=== PATIENT | female | born 1995 | race American Indian/Alaskan Native ===

== ENCOUNTER 2017-09-25 18:58 | Emergency (ER) | payer SELFPAY ==
[2017-09-25 22:29] LABS: HCG Qualitative,Urine Positive (Negative)
[2017-09-25 22:43] LABS: Bacteria,Urine 3+ /HPF (Negative); Bilirubin,Urine NEG (Negative); Blood,Urine NEG (Negative); Mucus,Urine FEW /HPF; Protein,Urine <15 mg/dL mg/dL (Negative)
[2017-09-25 22:44] LABS: Color,Urine Straw (Yellow)
--- NOTE | 2017-09-25 23:13 | Emergency Department Report ---
ED Abdominal Pain HPI - General Chief Complaint: Abdominal Pain Stated Complaint: FEVER Time Seen by Provider: 09/25/17 23:02 Source: patient Mode of arrival: Ambulatory Limitations: No Limitations - History of Present Illness Initial Comments: Patient here complaining of fever, abdominal and pelvic pain. Denies any urinary burning frequency or urgency. Denies any diarrhea, nausea or vomiting. Pain is 9 out of 10 and cramping. She said this started 2 days ago. Her last menstrual period was 08/03/2017. Patient states that she does not know she is . Denies any vaginal bleeding or discharge. Denies any concern for STDs. Denies any back pain. Denies any shortness of breath or chest pain. She says she took some cupf-urm-zyrvivt cough Tylenol yesterday morning. Pain comes and goes, crampy. Nothing makes it better and nothing makes it worse. Denies blood in her stool or urine. MD Complaint: abdominal pain Onset/Timin -: days(s) Location: suprapubic Radiation: none Migration to: no migration Severity: severe Severity scale (0 -10): 9 Quality: cramping Consistency: intermittent Improves With: nothing Worsens With: nothing Context: other (unknown) Associated Symptoms: fever. denies: nausea, vomiting, diarrhea, chills, constipation, dysuria, hematemesis, hematochezia, melena, hematuria, anorexia, syncope Treatments Prior to Arrival: other (Tylenol) - Related Data LMP Date: 08/03/17 Previous Rx's Medication Instructions Recorded Last Taken Type Nitrofurantoin Monohyd/M-Cryst 100 mg PO Q12H 7 Days #14 capsule 09/26/17 Unknown Rx [Macrobid 100 mg Capsule] Vit No.130/Iron/Folic 1 each PO QAM 30 Days #30 tablet 09/26/17 Unknown Rx [ Tablet] Allergies Allergy/AdvReac Type Severity Reaction Status Date / Time No Known Allergies Allergy Unverified 09/25/17 20:19 ED Review of Systems ROS: Stated complaint: FEVER Other details as noted in HPI Comment: All other systems reviewed and negative Constitutional: fever Eyes: denies: eye discharge ENT: denies: ear pain, throat pain, congestion Respiratory: no symptoms reported Cardiovascular: denies: chest pain, palpitations, dyspnea on exertion, edema, syncope, paroxysmal nocturnal dyspnea Gastrointestinal: abdominal pain. denies: nausea, vomiting, diarrhea, constipation, hematemesis, melena, hematochezia Skin: denies: rash Neurological: denies: headache, weakness, numbness, paresthesias, confusion, abnormal gait, vertigo ED Past Medical Hx - Past Medical History Previous Medical History?: No - Surgical History Past Surgical History?: No - Family History Family history: no significant - Social History Smoking Status: Never Smoker Substance Use Type: None - Medications Home Medications: Home Medications Medication Instructions Recorded Confirmed Last Taken Type Nitrofurantoin Monohyd/M-Cryst 100 mg PO Q12H 7 Days #14 capsule 09/26/17 Unknown Rx [Macrobid 100 mg Capsule] Vit No.130/Iron/Folic 1 each PO QAM 30 Days #30 tablet 09/26/17 Unknown Rx [ Tablet] ED Physical Exam - General Limitations: No Limitations General appearance: alert, in no apparent distress - Head Head exam: Present: atraumatic, normocephalic, normal inspection - Eye Eye exam: Present: normal appearance, PERRL, EOMI Pupils: Present: normal accommodation - ENT ENT exam: Present: normal exam, normal orophraynx, mucous membranes moist, TM's normal bilaterally, normal external ear exam - Neck Neck exam: Present: normal inspection, full ROM, other (no C-spine tenderness). Absent: tenderness, meningismus, lymphadenopathy, thyromegaly - Respiratory Respiratory exam: Present: normal lung sounds bilaterally. Absent: respiratory distress, chest wall tenderness - Cardiovascular Cardiovascular Exam: Present: regular rate, normal rhythm, normal heart sounds. Absent: systolic murmur, diastolic murmur - GI/Abdominal GI/Abdominal exam: Present: soft, normal bowel sounds. Absent: distended, tenderness, guarding, rebound, rigid, organomegaly, mass, bruit, pulsatile mass , hernia - Extremities Exam Extremities exam: Present: normal inspection, full ROM, normal capillary refill , other (no clubbing, cyanosis or edema. Positive pulses all extremities and no neurovascular compromise). Absent: tenderness, pedal edema, joint swelling, calf tenderness - Back Exam Back exam: Present: normal inspection, full ROM, other (patient ambulates without any difficulties). Absent: tenderness, CVA tenderness (R), CVA tenderness (L), muscle spasm, paraspinal tenderness, vertebral tenderness, rash noted - Neurological Exam Neurological exam: Present: alert, oriented X3, normal gait, reflexes normal - Psychiatric Psychiatric exam: Present: normal affect, normal mood - Skin Skin exam: Present: warm, dry, intact, normal color. Absent: rash ED Course Vital Signs 09/25/17 20:19 Temperature 98.7 F Pulse Rate 81 Respiratory 18 Rate Blood Pressure 118/50 O2 Sat by Pulse 100 Oximetry - Reevaluation(s) Reevaluation #1: 09/26/17 01:07 Patient remained stable throughout ED course. Rocephin 1 g IM given for urinary tract infection. ED Medical Decision Making - Lab Data Result diagrams: 09/25/17 23:27 09/25/17 23:27 Lab Results 09/25/17 09/25/17 09/25/17 Range/Units 22:06 23:27 23:27 WBC 7.1 (4.5-11.0) K/mm3 RBC 3.89 (3.65-5.03) M/mm3 Hgb 11.7 (10.1-14.3) gm/dl Hct 35.0 (30.3-42.9) % MCV 90 (79-97) fl MCH 30 (28-32) pg MCHC 33 (30-34) % RDW 12.7 L (13.2-15.2) % Plt Count 308 (140-440) K/mm3 Lymph % (Auto) 22.0 (13.4-35.0) % [place] % (Auto) 7.1 (0.0-7.3) % Eos % (Auto) 9.8 H (0.0-4.3) % Baso % (Auto) 0.5 (0.0-1.8) % Lymph # 1.6 (1.2-5.4) K/mm3 [place] # 0.5 (0.0-0.8) K/mm3 Eos # 0.7 H (0.0-0.4) K/mm3 Baso # 0.0 (0.0-0.1) K/mm3 Seg Neutrophils % 60.6 (40.0-70.0) % Seg Neutrophils # 4.3 (1.8-7.7) K/mm3 Sodium 137 (137-145) mmol/L Potassium 3.5 L (3.6-5.0) mmol/L Chloride 99.0 (98-107) mmol/L Carbon Dioxide 24 (22-30) mmol/L Anion Gap 18 mmol/L BUN 4 L (7-17) mg/dL Creatinine 0.4 L (0.7-1.2) mg/dL Estimated GFR > 60 ml/min BUN/Creatinine Ratio 10 % Glucose 80 (65-100) mg/dL Calcium 8.8 (8.4-10.2) mg/dL HCG, Quant (0-4) mIU/mL Urine Color Straw (Yellow) Urine Turbidity Slightly-cloudy (Clear) Urine pH 7.0 (5.0-7.0) Ur Specific [place] 1.012 (1.003-1.030) Urine Protein <15 mg/dl (Negative) mg/dL Urine Glucose (UA) Neg (Negative) mg/dL Urine Ketones Neg (Negative) mg/dL Urine Blood Neg (Negative) Urine Nitrite Neg (Negative) Ur Reducing Substances Not Reportable Urine Bilirubin Neg (Negative) Urine Ictotest Not Reportable Urine Urobilinogen 4.0 (<2.0) mg/dL Ur Leukocyte Esterase Tr (Negative) Urine WBC (Auto) 18.0 H (0.0-6.0) /HPF Urine RBC (Auto) 4.0 (0.0-6.0) /HPF U Epithel Cells (Auto) 18.0 H (0-13.0) /HPF Urine Bacteria (Auto) 3+ (Negative) /HPF Urine Mucus Few /HPF Urine HCG, Qual Positive A (Negative) 09/25/17 Range/Units 23:27 WBC (4.5-11.0) K/mm3 RBC (3.65-5.03) M/mm3 Hgb (10.1-14.3) gm/dl Hct (30.3-42.9) % MCV (79-97) fl MCH (28-32) pg MCHC (30-34) % RDW (13.2-15.2) % Plt Count (140-440) K/mm3 Lymph % (Auto) (13.4-35.0) % [place] % (Auto) (0.0-7.3) % Eos % (Auto) (0.0-4.3) % Baso % (Auto) (0.0-1.8) % Lymph # (1.2-5.4) K/mm3 [place] # (0.0-0.8) K/mm3 Eos # (0.0-0.4) K/mm3 Baso # (0.0-0.1) K/mm3 Seg Neutrophils % (40.0-70.0) % Seg Neutrophils # (1.8-7.7) K/mm3 Sodium (137-145) mmol/L Potassium (3.6-5.0) mmol/L Chloride (98-107) mmol/L Carbon Dioxide (22-30) mmol/L Anion Gap mmol/L BUN (7-17) mg/dL Creatinine (0.7-1.2) mg/dL Estimated GFR ml/min BUN/Creatinine Ratio % Glucose (65-100) mg/dL Calcium (8.4-10.2) mg/dL HCG, Quant 43178 H (0-4) mIU/mL Urine Color (Yellow) Urine Turbidity (Clear) Urine pH (5.0-7.0) Ur Specific [place] (1.003-1.030) Urine Protein (Negative) mg/dL Urine Glucose (UA) (Negative) mg/dL Urine Ketones (Negative) mg/dL Urine Blood (Negative) Urine Nitrite (Negative) Ur Reducing Substances Urine Bilirubin (Negative) Urine Ictotest Urine Urobilinogen (<2.0) mg/dL Ur Leukocyte Esterase (Negative) Urine WBC (Auto) (0.0-6.0) /HPF Urine RBC (Auto) (0.0-6.0) /HPF U Epithel Cells (Auto) (0-13.0) /HPF Urine Bacteria (Auto) (Negative) /HPF Urine Mucus /HPF Urine HCG, Qual (Negative) Urine culture pending - Radiology Data Radiology results: report reviewed Ultrasound pelvis with transvaginal OB revealed patient is single viable IUP, 12 weeks 4 days. heart rate is at 145 bpm. Both maternal ovaries are appropriate size, contour, blood flow and echotexture. Gestational sac containing a pole noted. No free fluid seen. - Medical Decision Making ED course: She reports abdominal and pelvic pain without any nausea vomiting. Reported that she had fever. Denies any urinary symptoms. Denies any vaginal bleeding or discharge. Denies any concern for STDs. Patient initially denies but after I told her that she was she reports that she suspected it and wanted to be checked to see if she is . Urinalysis revealed patient with urinary tract infection and positive test. Urine culture sent and pending. Quantitative hCG positive for ultrasound OB reveals a single viable IUP at 12 weeks and 4 days. heart rate is 145 bpm. Both ovaries are normal. Patient's CBC and chemistry was normal with no elevation in white blood cell. Please refer to radiology and lab section for details. I discussed patient that her test is positive and she is at 12 weeks and 4 days . She did not seem to be surprised. I also discussed with her that her urinalysis is positive for urinary tract infection and will be treated with Macrobid antibiotic. I discussed with her that is very important that she takes antibiotic as infection and can affect the baby. Patient able to tolerate oral liquids in emergency room without any difficulties. She did not require any pain medication. Patient does not have access to primary care so I discussed with her she can follow-up at [facility] where they have [facility] she can call in the morning to schedule an appointment. I also discussed with her that she can also follow-up with [facility] doctor Kinza Lewis who is on-call. I discussed with her to call tomorrow to schedule an appointment. Patient voiced understanding of discharge instruction and treatment plan. Patient discharged home in stable condition with prescription for Macrobid and vitamin. Critical care attestation.: If time is entered above; I have spent that time in minutes in the direct care of this critically ill patient, excluding procedure time. ED Disposition Clinical Impression: UTI (urinary tract infection) in in first trimester Abdominal pain in Qualifiers: Trimester: first trimester Qualified Code(s): O26.891 - Other specified related conditions, first trimester; R10.9 - Unspecified abdominal pain Disposition: DC-01 TO HOME OR SELFCARE Is pt being admited?: No Does the pt Need Aspirin: No Condition: Stable Instructions: Abdominal Pain (ED), (ED), Morning Sickness (ED), Urinary Tract Infection in Women (ED) Additional Instructions: Please take antibiotic as prescribed. Increase your fluid intake to at least 2-3 L of water per day Please follow up with [facility] as instructed. Take vitamin. If you develop vaginal bleeding, discharge or increase in abdominal pain please return to the emergency room otherwise follow-up with [facility] for care Prescriptions: Nitrofurantoin Monohyd/M-Cryst [Macrobid 100 mg Capsule] 100 mg PO Q12H 7 Days # 14 capsule Vit No.130/Iron/Folic [ Tablet] 1 each PO QAM 30 Days #30 tablet Referrals: [facility] [Outside] - 09/27/17 AZUCENA LEWIS MD [Staff Physician] - 09/27/17
[2017-09-25 23:44] LABS: Basophils % (Auto) 0.5 % (0.0-1.8); Eosinophils # (Auto) 0.7 K/mm3 (0.0-0.4); Eosinophils % (Auto) 9.8 % (0.0-4.3); Hemoglobin 11.7 gm/dl (10.1-14.3); Lymphocytes # (Auto) 1.6 K/mm3 (1.2-5.4); Mean Corpuscular HGB Conc 33 % (30-34); Mean Corpuscular Hemoglobin 30 pg (28-32); Mean Corpuscular Volume 90 fl (79-97); Monocytes # (Auto) 0.5 K/mm3 (0.0-0.8); Monocytes % (Auto) 7.1 % (0.0-7.3); Platelet Count 308 K/mm3 (140-440); Red Blood Count 3.89 M/mm3 (3.65-5.03); Red Cell Distribution Width 12.7 % (13.2-15.2)
[2017-09-25 23:51] LABS: BUN/Creatinine Ratio 10; Blood Urea Nitrogen 4 mg/dL (7-17); Calcium 8.8 mg/dL (8.4-10.2); Hemolysis Index 3
--- NOTE | 2017-09-26 00:22 | Ultrasound Report ---
FINAL REPORT EXAM: US OB < = 14 WEEKS FETUS HISTORY: abdominal pain with positive TECHNIQUE: Transabdominal imaging was obtained of the pelvis along with Doppler interrogation of the adnexa. FINDINGS: The uterus is anteverted measuring 10.8 cm x 8 cm x 9.5 cm. Within the uterus is a gestational sac containing a pole. The estimated gestational age based on crown-rump length is 12 weeks 4 days. The heart is 145 BPM. Free fluid is not seen. Both maternal ovaries are appropriate size, contour, blood flow, and echotexture. The right ovary measures 3 cm x 1.9 cm x 2.2 cm. The left ovary measures 2.5 cm x 1.2 cm x 1.9 cm IMPRESSION: Single viable IUP, 12 weeks 4 days. heart rate is 145 BPM.
[2017-09-26] MEDS ORDERED: ROCEPHIN IM STA (01:07)
[2017-09-26 02:40] VITALS: BP 114/51
== END 2017-09-26 01:45 | disposition home or self-care (01) ==
LOC: ED 18:58
DX: O23.41 Unspecified infection of urinary tract in pregnancy, first trimester (principal); Z3A.12 12 weeks gestation of pregnancy
CPT/HCPCS: 36415; 76801; 80048; 81001; 81025; 84702; 85025; 87086; 96372; 99284; J0696

== ENCOUNTER 2017-10-22 10:07 | Emergency (ER) | payer MEDICAID ==
[2017-10-22 10:41] VITALS: BP 111/67
[2017-10-22 11:43] LABS: Basophils % (Auto) 0.4 % (0.0-1.8); Eosinophils # (Auto) 0.2 K/mm3 (0.0-0.4); Eosinophils % (Auto) 3.1 % (0.0-4.3); Hemoglobin 11.9 gm/dl (10.1-14.3); Lymphocytes # (Auto) 1.3 K/mm3 (1.2-5.4); Lymphocytes % (Auto) 21.5 % (13.4-35.0); Mean Corpuscular HGB Conc 34 % (30-34); Mean Corpuscular Hemoglobin 30 pg (28-32); Mean Corpuscular Volume 89 fl (79-97); Monocytes # (Auto) 0.4 K/mm3 (0.0-0.8); Platelet Count 293 K/mm3 (140-440); Red Blood Count 3.93 M/mm3 (3.65-5.03); Red Cell Distribution Width 12.3 % (13.2-15.2)
[2017-10-22 11:56] LABS: Bacteria,Urine 1+ /HPF (Negative); Bilirubin,Urine NEG (Negative); Blood,Urine NEG (Negative); Color,Urine Yellow (Yellow); Protein,Urine <15 mg/dL mg/dL (Negative)
[2017-10-22 12:04] LABS: Alanine Aminotransferase 9 units/L (7-56); BUN/Creatinine Ratio 10; Blood Urea Nitrogen 4 mg/dL (7-17); Calcium 8.8 mg/dL (8.4-10.2); Hemolysis Index 18; Lipase 16 units/L (13-60)
--- NOTE | 2017-10-22 16:42 | Emergency Department Report ---
Chief Complaint: Abdominal Pain Stated Complaint: ABD PAIN Time Seen by Provider: 10/22/17 16:36 - HPI History of Present Illness: 22-year-old -[place] female comes to the emergency room reporting that she wants an ultrasound of her baby to check on the baby. Patient denies any vaginal discharge denies any pelvic pain denies any abdominal pain denies any vaginal bleeding, denies any chest pain no vaginal discharge. Patient denies any recent trauma. - ROS Review of Systems: Review of systems negative - Exam Vital Signs: Vital Signs 10/22/17 10:37 Temperature 98.6 F Pulse Rate 78 Respiratory 16 Rate Blood Pressure 111/67 O2 Sat by Pulse 100 Oximetry Physical Exam: Patient alert and oriented 3. She is in no acute distress, nontoxic, able to speak complete sentences. Normal gait. Vital signs are stable. MSE screening note: Focused history and physical exam performed. Due to findings the following was ordered: Discussed with patient she should follow up with her primary [facility] provider. ED Medical Decision Making - Lab Data Result diagrams: 10/22/17 11:19 10/22/17 11:19 ED Disposition for MSE Clinical Impression: Worried well Disposition: DC-01 TO HOME OR SELFCARE Is pt being admited?: No Does the pt Need Aspirin: No Condition: Stable Instructions: Abdominal Pain (ED) Referrals: your,provider [Other] - 3-5 Days
== END 2017-10-22 16:40 | disposition home or self-care (01) ==
LOC: ED 10:07
DX: Z71.1 Person with feared health complaint in whom no diagnosis is made (principal); R10.9 Unspecified abdominal pain
CPT/HCPCS: 36415; 80053; 81001; 83690; 85025; 99283

== ENCOUNTER 2018-03-04 15:48 | Outpatient (CLI) | payer MEDICAID ==
[2018-03-04] MEDS ORDERED: LACTATED RINGERS 500 ML IV ONE (15:57)
[2018-03-04 16:09] VITALS: BP 110/61
[2018-03-04 16:43] LABS: Amorphous Crystals,Urine 1+; Bilirubin,Urine NEG (Negative); Blood,Urine NEG (Negative); Color,Urine Yellow (Yellow)
== END 2018-03-04 18:12 | disposition home or self-care (01) ==
LOC: TRG 15:48
PROVIDERS: ATTEND Obstetrics & Gynecology
DX: O47.03 False labor before 37 completed weeks of gestation, third trimester (principal); Z3A.35 35 weeks gestation of pregnancy
CPT/HCPCS: 59025; 81001

== ENCOUNTER 2018-04-03 17:20 | Outpatient (CLI) | payer MEDICAID ==
[2018-04-03 17:53] VITALS: BP 124/80
== END 2018-04-03 19:22 | disposition home or self-care (01) ==
LOC: TRG 17:20
PROVIDERS: ATTEND Obstetrics & Gynecology
DX: O47.1 False labor at or after 37 completed weeks of gestation (principal); Z3A.39 39 weeks gestation of pregnancy
CPT/HCPCS: 59025

== ENCOUNTER 2019-06-04 12:06 | Outpatient (CLI) | payer MEDICAID ==
[2019-06-04 13:22] VITALS: BP 120/66
--- NOTE | 2019-06-04 14:47 | Ultrasound Report ---
ULTRASOUND BIOPHYSICAL PROFILE INDICATION: Intrauterine growth restriction. COMPARISON: None available. FINDINGS: heart rate is 126 beats per minute. breathing movement = 2 Gross body movement = 2 tone = 2 Qualitative amniotic fluid volume = 2 IMPRESSION: biophysical profile = 03/01 Signer Name: Robbie García Jr, MD Signed: 06/04/2019 2:43 PM Workstation Name: [id number]
== END 2019-06-04 14:00 | disposition home or self-care (01) ==
LOC: TRG 12:06
PROVIDERS: ATTEND Obstetrics & Gynecology
DX: O47.1 False labor at or after 37 completed weeks of gestation (principal); Z3A.38 38 weeks gestation of pregnancy
CPT/HCPCS: 59025; 76819

== ENCOUNTER 2019-06-05 08:50 | Inpatient (IN) | payer MEDICAID ==
--- NOTE | 2019-06-05 09:23 | History and Physical Report ---
History of Present Illness Date of examination: 06/05/19 Date of admission: 06/05/19 08:50 Chief complaint: IOL for IUGR History of present illness: EDC Confirmation: 06/18/2019 Past History : 2 Term Births: 1 Premature Births: 0 Living Children: 1 Para: 1 Prev : 0 Prev. attempt? 0 Aborta: 0 Elect. Ab: 0 Spont. Ab: 0 Ectopics: 0 # 1 Delivery date: 04/04/2018 Weeks Gestation: 39.5 Delivery type: Vaginal Anesthesia type: none Delivery location: [facility] Infant Sex: female weight: 5.50 Comments: precipitous delivery 1cm to delivery in 8 hours Past Medical History: Reviewed history from 10/25/2017 and no changes required: Negative Past Medical History Past Surgical History: Reviewed history from 10/25/2017 and no changes required: negative Past Medical History Anesthesia Complications: negative Anemia: negative Autoimmune Disorder: negative Bleeding Disorder: negative Blood Transfusions: negative Breast Disease: negative Diabetes: negative Heart Disease: negative Hypertension: negative Hepatitis/Liver Disease: negative Kidney Disease/UTI: negative Neurologic/Epilepsy/Migraines: negative Phlebitis/Varicosities: negative Psychiatric: negative Pulmonary Disease/Asthma: negative Thyroid Disease: negative Hospitalizations: negative 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 of genital herpes: no Partner hx. of genital herpes: no Rash, Viral, or Febrile illness since last LMP? no Varicella/Chicken Pox Status: Immunized TB Risk: no Genetic History Congenital Heart Defect: Mom: no Dad: no [place] Disease: Mom: no Dad: no Thalassemia Mom: no Dad: no Neural Tube Defect Mom: no Dad: no Down's Syndrome Mom: no Dad: no Orion-Sachs Mom: no Dad: no Sickle Cell Disease/Trait Mom: yes Dad: no Hemophilia Mom: no Dad: no Muscular Dystrophy Mom: no Dad: no Cystic Fibrosis Mom: no Dad: no Asher Chorea Mom: no Dad: no Mental Retardation Mom: no Dad: no Fragile X Mom: no Dad: no Other Genetic/Chromosomal Disorder Mom: no Dad: no Child w/other defect Mom: no Dad: no Enviromental Exposures Xray Exposure: no Medication, drug, or alcohol use since LMP: no Chemical/Other Exposure: no Exposure to Cat Liter: no Hx of Parvovirus (Fifth Disease): no Occupational Exposure to Children: none Active Medications (reviewed today): SPRINTEC 28 0.25-35 MG-MCG ORAL TABLET (NORGESTIMATE-ETH ESTRADIOL) 1 po qd Current Allergies (reviewed today): No known allergies Past History Past Medical History: other (see HPI) Past Surgical History: other (see HPI) 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) Family/Genetic History: other (see HPI) - Obstetrical History Expected Date of Delivery: 06/18/19 Actual Gestation: 38 Week(s) 1 Day(s) : 2 Para: 1 Hx # Term Pregnancies: 1 Number of Pregnancies: 0 Spontaneous Abortions: 0 Induced : 0 Number of Living Children: 1 Medications and Allergies Allergies Allergy/AdvReac Type Severity Reaction Status Date / Time No Known Allergies Allergy Verified 03/04/18 15:56 Home Medications Medication Instructions Recorded Confirmed Last Taken Type Vit No.130/Iron/Folic 1 each PO QAM 30 Days #30 tablet 09/26/17 04/04/18 03/03/18 09:00 Rx [ Tablet] Ibuprofen [Motrin 800 MG tab] 800 mg PO Q8HR PRN #30 tablet 04/05/18 Unknown Rx Active Meds: Active Medications Ephedrine Sulfate (Ephedrine Sulfate) 10 mg IV Q2M PRN PRN Reason: Hypotension Oxytocin/Sodium Chloride (Pitocin/Ns 20 Unit/1000ml Drip) 20 units in 1,000 mls @ 125 mls/hr IV DIRECT SIVAN Oxytocin/Sodium Chloride (Pitocin/Ns 30 Unit/500ml) 30 units in 500 mls @ 4 mls/hr IV TITR SIVAN; Protocol Lactated Ringer's (Lactated Ringers) 1,000 mls @ 125 mls/hr IV DIRECT SIVAN Ampicillin Sodium (Ampicillin/Ns 2 Gm/100 Ml) 2 gm in 100 mls @ 100 mls/hr IV ONCE ONE; Protocol Stop: 06/05/19 10:11 Ampicillin Sodium (Ampicillin/Ns 1 Gm/50 Ml) 1 gm in 50 mls @ 100 mls/hr IV Q4HR SIVAN; Protocol Lidocaine (Xylocaine 2%) 20 ml INFILTRATI ONCE ONE Stop: 06/05/19 09:13 Mineral Oil (Mineral Oil) 30 ml PO QHS PRN PRN Reason: Constipation Ondansetron HCl (Zofran) 4 mg IV Q8H PRN PRN Reason: Nausea And Vomiting Terbutaline Sulfate (Brethine) 0.25 mg SUB-Q ONCE PRN PRN Reason: Hyperstimulation/Hypertonicity Review of Systems All systems: negative - Physical Exam Breasts: Positive: normal Cardiovascular: Regular rate Lungs: Positive: Clear to auscultation, Normal air movement Abdomen: Positive: normal appearance, soft Genitourinary (Female): Positive: normal external genitalia, normal perenium Vulva: both: normal Vagina: Positive: normal moisture Uterus: Positive: normal size Anus/Rectum: Positive: normal perianal skin Extremities: Positive: normal Deep Tendon Reflex Grade: Normal +2 - Obstetrical FHR: category 1 Uterine Contraction Monitor Mode: External Cervical Dilatation: 0.5 Uterine Contraction Pattern: Regular Uterine Tone Measurement Phase: Contraction Uterine Contraction Intensity: Mild Results Result Diagrams: 06/05/19 09:30 All other labs normal. Assessment and Plan 23 y/o @ 38+1 weeks (EDC set by 16wk u/s, unknown LMP) recently dx with IUGR. pt noncompliant with going to [facility]. EFW in office overall 5th% 05/22/19 (4#11oz). GBS +. Plan for IOL with pitocin. Anticipate . - Patient Problems (1) GBS (group B Streptococcus carrier), +RV culture, currently Current Visit: Yes Status: Acute Plan to address problem: amp q4hr until delivery (2) IUGR (intrauterine growth restriction) Current Visit: Yes Status: Acute Plan to address problem: IOL for IUGR - pitocin continuos EFM/toco (3) 38 weeks gestation of Current Visit: Yes Status: Acute
[2019-06-05] MEDS ORDERED: ePHEDrine SULFATE 50 MG/1 ML INJ IV PRN ×2 (09:30→14:00)
[2019-06-05] MEDS ORDERED: AMPICILLIN/NS 2 GM/100 ML 2 GM/100 ML BAG IV NR (09:30)
[2019-06-05] MEDS ORDERED: ONDANSETRON 4 MG/2 ML INJ IV PRN (10:00)
[2019-06-05] MEDS ORDERED: LACTATED RINGERS 1,000 ML IV SCH (10:00)
[2019-06-05] MEDS ORDERED: OXYTOCIN 20 UNIT/1000ML DRIP 20 UNITS/1,000 ML BAG IV SCH ×2 (10:00→21:05)
[2019-06-05] MEDS ORDERED: MINERAL OIL 30 ML ORAL LIQD PO PRN (10:00)
[2019-06-05] MEDS ORDERED: LIDOCAINE (2%) 20 MG/1 ML VIAL 20 ML MDV INFILTRATI NR (10:00)
[2019-06-05] MEDS ORDERED: TERBUTALINE 1 MG/1 ML INJ SUB-Q PRN (10:00)
[2019-06-05] MEDS ORDERED: OXYTOCIN DRIP 30 UNITS/500 ML BAG IV SCH (10:00)
[2019-06-05 10:08] LABS: Hematocrit 29.4 % (30.3-42.9); Hemoglobin 9.2 gm/dl (10.1-14.3); Mean Corpuscular HGB Conc 31 % (30-34); Mean Corpuscular Volume 72 fl (79-97); Platelet Count 341 K/mm3 (140-440)
--- NOTE | 2019-06-05 13:40 | Progress Note ---
Assessment and Plan Pitocin @ 20mU, AROM clear fluid. IUPC placed without difficulty. Patient desires epidural. IVF bolus started. - Patient Problems (1) GBS (group B Streptococcus carrier), +RV culture, currently Current Visit: Yes Status: Acute Plan to address problem: amp q4hr until delivery (2) IUGR (intrauterine growth restriction) Current Visit: Yes Status: Acute Plan to address problem: IOL for IUGR - pitocin continuos EFM/toco (3) 38 weeks gestation of Current Visit: Yes Status: Acute Subjective - Subjective Date of service: 06/05/19 Principal diagnosis: IUP @ 38+1; IOL IUGR Interval history: EDC Confirmation: 06/18/2019 Past History : 2 Term Births: 1 Premature Births: 0 Living Children: 1 Para: 1 Prev : 0 Prev. attempt? 0 Aborta: 0 Elect. Ab: 0 Spont. Ab: 0 Ectopics: 0 # 1 Delivery date: 04/04/2018 Weeks Gestation: 39.5 Delivery type: Vaginal Anesthesia type: none Delivery location: [facility] Infant Sex: female weight: 5.50 Comments: precipitous delivery 1cm to delivery in 8 hours Past Medical History: Reviewed history from 10/25/2017 and no changes required: Negative Past Medical History Past Surgical History: Reviewed history from 10/25/2017 and no changes required: negative Past Medical History Anesthesia Complications: negative Anemia: negative Autoimmune Disorder: negative Bleeding Disorder: negative Blood Transfusions: negative Breast Disease: negative Diabetes: negative Heart Disease: negative Hypertension: negative Hepatitis/Liver Disease: negative Kidney Disease/UTI: negative Neurologic/Epilepsy/Migraines: negative Phlebitis/Varicosities: negative Psychiatric: negative Pulmonary Disease/Asthma: negative Thyroid Disease: negative Hospitalizations: negative Surgery (Non-oral surgeon): negative Abnormal PAP: first pap 01/02/19 Social Hx: single [place] No etoh/drugs/smoking Infection History Hx of STD: CT HIV Risk Eval: low risk Hepatitis B Risk Eval: low risk Personal hx. of genital herpes: no Partner hx. of genital herpes: no Rash, Viral, or Febrile illness since last LMP? no Varicella/Chicken Pox Status: Immunized TB Risk: no Genetic History Congenital Heart Defect: Mom: no Dad: no [place] Disease: Mom: no Dad: no Thalassemia Mom: no Dad: no Neural Tube Defect Mom: no Dad: no Down's Syndrome Mom: no Dad: no Orion-Sachs Mom: no Dad: no Sickle Cell Disease/Trait Mom: yes Dad: no Hemophilia Mom: no Dad: no Muscular Dystrophy Mom: no Dad: no Cystic Fibrosis Mom: no Dad: no Mason Chorea Mom: no Dad: no Mental Retardation Mom: no Dad: no Fragile X Mom: no Dad: no Other Genetic/Chromosomal Disorder Mom: no Dad: no Child w/other defect Mom: no Dad: no Enviromental Exposures Xray Exposure: no Medication, drug, or alcohol use since LMP: no Chemical/Other Exposure: no Exposure to Cat Liter: no Hx of Parvovirus (Fifth Disease): no Occupational Exposure to Children: none Active Medications (reviewed today): SPRINTEC 28 0.25-35 MG-MCG ORAL TABLET (NORGESTIMATE-ETH ESTRADIOL) 1 po qd Current Allergies (reviewed today): No known allergies Patient reports: movement normal, contractions Objective - Vital Signs Vital Signs: Vital Signs - 12hr 06/05/19 06/05/19 06/05/19 09:24 09:25 09:30 Temperature Pulse Rate 70 75 113 H Blood Pressure 129/76 O2 Sat by Pulse 100 100 Oximetry 06/05/19 06/05/19 06/05/19 09:35 09:38 10:44 Temperature 98.4 F Pulse Rate 106 H 74 Blood Pressure 119/73 O2 Sat by Pulse 100 Oximetry 06/05/19 06/05/19 06/05/19 11:00 11:15 11:23 Temperature Pulse Rate 63 67 58 L Blood Pressure 118/74 122/70 O2 Sat by Pulse 81 L Oximetry 06/05/19 06/05/19 06/05/19 11:24 11:30 11:46 Temperature Pulse Rate 54 L 76 71 Blood Pressure 115/74 149/68 O2 Sat by Pulse 81 L Oximetry 06/05/19 06/05/19 06/05/19 11:49 11:55 12:00 Temperature Pulse Rate 63 76 72 Blood Pressure O2 Sat by Pulse 100 100 100 Oximetry 06/05/19 06/05/19 06/05/19 12:01 12:05 12:10 Temperature Pulse Rate 75 83 71 Blood Pressure 119/74 O2 Sat by Pulse 100 100 Oximetry 06/05/19 06/05/19 06/05/19 12:15 12:16 12:17 Temperature Pulse Rate 80 70 75 Blood Pressure 124/83 O2 Sat by Pulse 100 74 L Oximetry 06/05/19 06/05/19 06/05/19 12:20 12:25 12:30 Temperature Pulse Rate 71 76 81 Blood Pressure 118/77 O2 Sat by Pulse 99 100 100 Oximetry 06/05/19 06/05/19 06/05/19 12:35 12:40 12:45 Temperature Pulse Rate 82 81 75 Blood Pressure 125/79 O2 Sat by Pulse 100 98 88 Oximetry 06/05/19 06/05/19 06/05/19 12:50 12:55 13:00 Temperature Pulse Rate 93 H 83 81 Blood Pressure 120/74 O2 Sat by Pulse 100 100 99 Oximetry 06/05/19 06/05/19 06/05/19 13:05 13:10 13:22 Temperature Pulse Rate 72 88 77 Blood Pressure 123/65 O2 Sat by Pulse 99 100 94 Oximetry 06/05/19 06/05/19 06/05/19 13:23 13:28 13:31 Temperature Pulse Rate 77 79 71 Blood Pressure 145/67 O2 Sat by Pulse 99 100 Oximetry 06/05/19 13:33 Temperature Pulse Rate 69 Blood Pressure O2 Sat by Pulse 100 Oximetry - Exam Breasts: normal Cardiovascular: Regular rate Lungs: Clear to auscultation, Normal air movement Abdomen: Present: normal appearance, soft Vulva: both: normal Uterus: Present: normal, fundal height at umbilicus FHR: auscultation normal, category 1 Uterine Contraction Monitor Mode: Internal Cervical Dilatation: 3 (AROM - clear) Cervical Effacement Percentage: 80 station: 0 Uterine Contraction Frequency (min): 2-3 Uterine Contraction Duration: 60 Uterine Contraction Pattern: Regular Uterine Tone Measurement Phase: Contraction Uterine Contraction Intensity: Moderate Extremities: normal Deep Tendon Reflex Grade: Normal +2 - Labs Labs: Abnormal Labs 06/05/19 09:30 Hgb 9.2 L Hct 29.4 L MCV 72 L MCH 23 L RDW 16.0 H Laboratory Results - last 24 hr 06/05/19 06/05/19 06/05/19 09:30 09:30 09:30 WBC 6.3 RBC 4.10 Hgb 9.2 L Hct 29.4 L MCV 72 L MCH 23 L MCHC 31 RDW 16.0 H Plt Count 341 Syphilis IgG Antibody Non-reactive Blood Type O POSITIVE Antibody Screen Negative
[2019-06-05] MEDS ORDERED: NALOXONE 2 MG/2 ML INJ IV PRN (14:00)
[2019-06-05] MEDS ORDERED: AMPICILLIN/NS 1 GM/50 ML 1 GM/50 ML BAG IV SCH (14:00)
[2019-06-05] MEDS ORDERED: fentaNYL-BUPIV 2 MCG/ML-0.125% 200 MCG/100 ML BAG EPIDURAL SCH (14:00)
--- NOTE | 2019-06-05 14:00 | Anesthesia Consultation ---
Anesthesia Consult and Med Hx Date of service: 06/05/19 - Airway Anesthetic Teeth Evaluation: Good ROM Head & Neck: Adequate Mental/Hyoid Distance: Adequate Mallampati Class: Class II Intubation Access Assessment: Good - Cardiac Exam Cardiac Exam: RRR - Pre-Operative Health Status ASA Pre-Surgery Classification: ASA2, Emergency Proposed Anesthetic Plan: Epidural - Pulmonary Hx Asthma: No COPD: No Hx Pneumonia: No - Cardiovascular System Hx Hypertension: No - Central Nervous System Hx Seizures: No Hx Psychiatric Problems: No - Endocrine Hx Renal Disease: No Hx End Stage Renal Disease: No Hx Hypothyroidism: No Hx Hyperthyroidism: No - Hematic Hx Anemia: No Hx Sickle Cell Disease: No - Other Systems Hx Alcohol Use: No
[2019-06-05] MEDS ORDERED: fentaNYL 100 MCG/2 ML INJ ONE (14:08)
[2019-06-05] MEDS ORDERED: BUPIVACAINE/PF (0.25%) 2.5 MG/ML 10 ML VIAL INFILTRATI ONE (14:09)
--- NOTE | 2019-06-05 18:21 | Procedure Note ---
OB Delivery Note - Delivery Date of Delivery: 06/05/19 ( female) Conference Planning Manager: ARGELIA PONCE Estimated blood loss: other (400) - Vaginal Delivery presentation: vertex Delivery position: OA Intrapartum events: none Delivery induction: oxytocin Delivery augmentation: rupture of membranes Delivery monitor: external FHT, internal uterine Route of delivery: Delivery placenta: spontaneous (sent to pathology) Delivery cord: 3 umbilical vessels Episiotomy: none Delivery laceration: none Anesthesia: epidural Delivery comments: female infant del over intact perineum, placed skin to skin on mother's abdomen. 3 vessel cord clamped and cut after cessation of pulsation. Placenta del intact and complete - sent to pathology. no lacs to repair. EBL 300, apgars 8/9, wt 5#14oz. Mother and infant remain LDR stable. - Infant A at 1 minute: 8 at 5 minutes: 9 Gender: Female (5#14)
[2019-06-05] MEDS ORDERED: MAGNESIUM HYDROXIDE (MOM) ORAL LIQD UDC PO PRN (21:05)
[2019-06-05] MEDS ORDERED: WITCH HAZEL/ GLYCERIN PAD TP PRN (21:05)
[2019-06-05] MEDS ORDERED: diphenhydrAMINE 25 MG CAP PO PRN (21:05)
[2019-06-05] MEDS ORDERED: ACETAMINOPHEN 325 MG TAB PO PRN (21:05)
[2019-06-05] MEDS ORDERED: PROMETHAZINE 25 MG TAB PO PRN (21:05)
[2019-06-05] MEDS ORDERED: LANOLIN/ZINC/DIMETHICONE (LANSINOH) 7 GM TP PRN (21:05)
[2019-06-05] MEDS: IBUPROFEN 600 MG TAB PO SCH (21:21)
[2019-06-05] MEDS: FERROUS SULFATE 325 MG TAB PO SCH (21:22)
--- NOTE | 2019-06-06 05:04 | Post Anesthesia Evaluation ---
- Post Anesthesia Evaluation Patient Participated: Yes Airway Patent: Yes Stable Respiratory Function: Yes Nausea/Vomiting: No Temp > 96.8F: Yes Pain Manageable: Yes Adequeate Hydration: Yes Anesthesia Complications: No Block Receding Appropriately: Yes Patient on Ventilator: No
[2019-06-06] MEDS: IBUPROFEN 600 MG TAB PO SCH ×3 (05:16→21:25)
[2019-06-06 06:21] LABS: Hematocrit 25.6 % (30.3-42.9)
--- NOTE | 2019-06-06 06:26 | Discharge Summary ---
Providers - Providers Date of Admission: 06/05/19 08:50 Date of discharge: 06/06/19 (Wants to "maybe' go home today) Attending physician: JORGE A AGUSTIN Primary care physician: JORGE A AGUSTIN Hospitalization Reason for admission: induction of labor Delivery: Episiotomy: none Laceration: none Incision: normal Other procedures: none complications: none Discharge diagnosis: IUP at term delivered baby: female (IUGR) Hospital course: uncomplicated vaginal delivery Pt A&O caring for NB VSS FF below umb Lochia small Perineum intact H&H pending No s/sx of anemia Doing well s/p vag delivery. P: d/c today with instructions RTO 4 weeks PP care DEPO prior to d/c Condition at discharge: Good Disposition: DC-01 TO HOME OR SELFCARE - Discharge Diagnoses (1) Vaginal delivery Status: Acute Comment: RTO 4 weeks PP care Plan - Provider Discharge Summary Activity: routine, no sex for 6 weeks, no heavy lifting 4 weeks, no strenuous exercise Diet: routine Instructions: routine Additional instructions: [] Smoking cessation referral if applicable(refer to patient education folder for contact #) [] Refer to [facility]'s [facility] Booklet Call your doctor immediately for: * Fever > 100.5 * Heavy vaginal bleeding ( >1 pad per hour) * Severe persistent headache * Shortness of breath * Reddened, hot, painful area to leg or breast * Drainage or odor from incision. * Keep incision clean and dry at all times and follow doctor's instructions regarding bathing/showering - Follow up plan Follow up: JORGE A AGUSTIN MD [Primary Care Provider] - 07/05/19 (Congratulations! Please call [phone] to schedule your visit in 4 weeks. Use Motrin/ibuprofen for cramping/pain. Call with any concerns.)
[2019-06-06] MEDS ORDERED: medroxyPROGESTERone ACETATE 150 MG/ML SYRINGE IM NR (07:30)
[2019-06-06] MEDS: FERROUS SULFATE 325 MG TAB PO SCH ×2 (09:59→21:26)
[2019-06-06] MEDS: PRENATAL VIT27-FE FUMARATE-FOLIC ACID VIT TAB PO SCH (09:59)
[2019-06-07] MEDS: FERROUS SULFATE 325 MG TAB PO SCH (10:13)
[2019-06-07] MEDS: IBUPROFEN 600 MG TAB PO SCH (10:13)
[2019-06-07] MEDS: PRENATAL VIT27-FE FUMARATE-FOLIC ACID VIT TAB PO SCH (10:13)
[2019-06-07 13:13] VITALS: BP 110/49
== END 2019-06-07 13:30 | disposition home or self-care (01) | DRG 775 ==
LOC: LD 08:50 → OB 20:54
PROVIDERS: ADMIT Obstetrics & Gynecology; ATTEND Obstetrics & Gynecology
PROC: 10E0XZZ Delivery of Products of Conception, External Approach (ICD-10-PCS; principal; 2019-06-05)
PROC: 3E033VJ Introduction of Other Hormone into Peripheral Vein, Percutaneous Approach (ICD-10-PCS; 2019-06-05)
PROC: 3E0R3BZ Introduction of Anesthetic Agent into Spinal Canal, Percutaneous Approach (ICD-10-PCS; 2019-06-05)
PROC: 00HU33Z Insertion of Infusion Device into Spinal Canal, Percutaneous Approach (ICD-10-PCS; 2019-06-05)
PROC: 10H07YZ Insertion of Other Device into Products of Conception, Via Natural or Artificial Opening (ICD-10-PCS; 2019-06-05)
DX: O36.5930 Maternal care for other known or suspected poor fetal growth, third trimester, not applicable or unspecified (principal); Z3A.38 38 weeks gestation of pregnancy; Z37.0 Single live birth; O99.824 Streptococcus B carrier state complicating childbirth; Z91.19 Patient's noncompliance with other medical treatment and regimen
CPT/HCPCS: 36415; 59025; 76819; 85014; 85018; 85027; 86592; 86850; 86900; 86901; 88307; G0378; J0290; J2590; J3010; J7120